=== PATIENT | male | born 1960 | race Caucasian/White ===

== ENCOUNTER 2022-12-08 14:15 | Inpatient (IN) | payer OTHER ==
[~2022-12-08] VITALS: Ht 175.3 cm; Wt 83.5 kg
[~2022-12-08 14:15] MED LIST: ASA81 MG; CAPTOPRIL12.5 MG; LANTUS100 U/ML; METFORMIN HCL500 MG; NEURONTIN600 MG; NOVOLOG100 U/ML; PENTOXIL400 MG; PLAVIX75 MG; ZANTAC300 MG; ZOCOR5 MG
== END 2022-12-18 15:23 | disposition home or self-care (01) | DRG 638 ==
LOC: ER 14:15 → SEC-K 22:26 → MEDI 12-10 11:06
PROVIDERS: ADMIT Internal Medicine; ATTEND Internal Medicine
PROC: 0JBQ3ZZ Excision of Right Foot Subcutaneous Tissue and Fascia, Percutaneous Approach (ICD-10-PCS; principal; 2022-12-16)
DX: E13.628 Other specified diabetes mellitus with other skin complications (principal); L02.612 Cutaneous abscess of left foot; L03.031 Cellulitis of right toe; L08.89 Other specified local infections of the skin and subcutaneous tissue; E13.621 Other specified diabetes mellitus with foot ulcer; B96.89 Other specified bacterial agents as the cause of diseases classified elsewhere; L97.519 Non-pressure chronic ulcer of other part of right foot with unspecified severity; I25.10 Atherosclerotic heart disease of native coronary artery without angina pectoris; I10 Essential (primary) hypertension; Z79.4 Long term (current) use of insulin

== ENCOUNTER 2023-10-05 07:28 | Emergency (ER) | payer OTHER ==
[~2023-10-05] VITALS: Ht 167.6 cm; Wt 81.6 kg
[2023-10-05] MEDS ORDERED: TRAMADOL HCL E100 M1 PO (08:23)
== END 2023-10-05 10:13 | disposition home or self-care (01) ==
LOC: ER 07:28
DX: H16.292 Other keratoconjunctivitis, left eye (principal); E11.9 Type 2 diabetes mellitus without complications; Z79.4 Long term (current) use of insulin

== ENCOUNTER 2024-08-10 07:36 | Outpatient (CLI) | payer OTHER ==
[~2024-08-10 07:36] MED LIST changes: +NABUMETONE500 MG PO; +PERCOCET 5/3251 TAB PO; +TRAMADOL HCL E100 M1 PO
== END 2024-08-10 07:44 | disposition home or self-care (01) ==
LOC: MRI 07:36
PROVIDERS: ATTEND Physical Medicine & Rehabilitation
DX: M54.50 Low back pain, unspecified (principal); M54.16 Radiculopathy, lumbar region
CPT/HCPCS: 72148

== ENCOUNTER → 2024-08-17 07:18 | Outpatient (CLI) | payer OTHER | END | disposition home or self-care (01) | LOC: NUCLEAR 07:18 | PROVIDERS: ATTEND Specialist | DX: I87.2 Venous insufficiency (chronic) (peripheral) (principal) ==

== ENCOUNTER 2024-08-18 07:37 | Outpatient (CLI) | payer OTHER | END 2024-08-18 07:38 | disposition home or self-care (01) | LOC: NUCLEAR 07:37 | PROVIDERS: ATTEND Specialist | DX: I73.9 Peripheral vascular disease, unspecified (principal) ==